=== PATIENT | female | born 1980 | race African-American/Black ===

== ENCOUNTER 2022-10-24 17:17 | Emergency (ER) | payer OTHER ==
[~2022-10-24] VITALS: Ht 167.6 cm; Wt 90.7 kg
--- NOTE | 2022-10-24 17:45 | NUR ---
urine sample collected and sent to lab
--- NOTE | 2022-10-24 17:53 | NUR ---
iv established. 22g LAC
--- NOTE | 2022-10-24 17:53 | NUR ---
blood drawn and sent to lab
[2022-10-24] MEDS ORDERED: ONDANSETRON HCL/PF 4 MG/2 ML VIAL ONE (17:57)
[2022-10-24] MEDS ORDERED: MORPHINE SULFATE INJ 4 MG/ML DISP.SYRIN ONE (17:57)
[2022-10-24] MEDS ORDERED: IV NS 0.9% 1,000 ML BAG IV ONE (18:00)
[2022-10-24] MEDS ORDERED: ONDANSETRON HCL/PF 4 MG/2 ML VIAL IVP ONE (18:00)
[2022-10-24] MEDS ORDERED: MORPHINE SULFATE INJ 2 MG/ML DISP.SYRIN IV ONE (18:00)
[2022-10-24 18:04] LABS: BASOPHILS % (AUTO) 0.3 % (0.0-2.0); EOSINOPHILS % (AUTO) 1.3 % (0.0-6.0); HEMATOCRIT 38 % (33-45); LYMPHOCYTES # (AUTO) 2.1 K/uL (0.8-4.8); MEAN CORPUSCULAR HGB CONC 32 g/dl (31.0-36.0); MEAN CORPUSCULAR VOLUME 86 fL (82-100); MONOCYTES # (AUTO) 0.6 K/uL (0.1-1.30); NEUTROPHILS # (AUTO) 4.6 K/uL (1.8-8.9); NEUTROPHILS % (AUTO) 62.4 % (43.0-81.0); PLATELET COUNT (AUTO) 289 K/uL (150-450); RED BLOOD CELL COUNT(AUTO) 4.37 MIL/uL (4.0-5.2); WHITE BLOOD COUNT (AUTO) 7.4 K/uL (4.3-11.0)
[2022-10-24 18:12] LABS: CALCIUM, SERUM 8.9 mg/dL (8.5-10.1); CREATININE 0.9 mg/dL (0.6-1.3); POTASSIUM 3.2 mmol/L (3.5-5.1)
[2022-10-24 18:15] LABS: BILIRUBIN,URINE NEGATIVE (NEGATIVE); COLOR,URINE YELLOW (YELLOW); LEUKOCYTE ESTERASE ,URINE NEGATIVE (NEGATIVE); NITRITE, URINE NEGATIVE (NEGATIVE); PH,URINE 6.5 (5.0-8.0); PROTEIN,URINE NEGATIVE (NEGATIVE); UGLUCOSE NEGATIVE (NEGATIVE)
[2022-10-24 18:18] LABS: ALBUMIN 3.7 g/dL (3.4-5.0); BILIRUBIN,DIRECT 0.1 mg/dL (0.0-0.2); BILIRUBIN,TOTAL 0.3 mg/dL (0.2-1.0); TOTAL PROTEIN, SERUM 7.9 g/dL (6.4-8.2)
--- NOTE | 2022-10-24 18:25 | NUR ---
patient taken to ct via [facility]
[2022-10-24 18:27] LABS: BACTERIA,URINE 1+ /HPF (None Seen); RBC,URINE 0-2 /HPF (0-2); SQUAMOUS EPITHELIAL CELL,UR Moderate /HPF (None Seen); WBC,URINE 0-2 /HPF (0-3)
[2022-10-24] MEDS ORDERED: PROCHLORPERAZINE EDISYLATE 10 MG/2 ML VIAL IVP ONE (19:00)
[2022-10-24] MEDS ORDERED: diphenhydrAMINE HCL 50 MG/ML VIAL IV ONE (19:00)
[2022-10-24] MEDS ORDERED: PROCHLORPERAZINE EDISYLATE 10 MG/2 ML VIAL ONE (19:02)
[2022-10-24] MEDS ORDERED: diphenhydrAMINE HCL 50 MG/ML VIAL ONE (19:02)
[2022-10-24] MEDS ORDERED: POTASSIUM CHLORIDE 20 MEQ TAB.PRT.SR PO ONE ×2 (19:12→19:30)
[2022-10-24] MEDS ORDERED: NAPR-1164 PO (20:19)
[2022-10-24] MEDS ORDERED: ONDA4TAB5 PO (20:19)
[2022-10-24 20:40] VITALS: BP 130/85
--- NOTE | 2022-10-24 20:40 | NUR ---
Patient discharged to home in stable condition. Ambulatory. Written and verbal after care instructions given. Patient verbalizes understanding of instruction.
== END 2022-10-24 20:41 | disposition home or self-care (01) ==
LOC: ER 17:20
DX: G43.909 Migraine, unspecified, not intractable, without status migrainosus (principal); E87.6 Hypokalemia; R11.2 Nausea with vomiting, unspecified; Z91.013 Allergy to seafood; Z79.899 Other long term (current) drug therapy; Z88.1 Allergy status to other antibiotic agents
CPT/HCPCS: 99285; 96374; 96375; 70450; 96361; 85025; 80048; 80076; 84703; 81001; 36415; J0780; J1200; J2270; J2405; J7030

== ENCOUNTER 2024-04-24 10:14 | Emergency (ER) | payer OTHER ==
[~2024-04-24] VITALS: Ht 165.1 cm; Wt 95.3 kg
[~2024-04-24 10:14] MED LIST: NAPR-1164 PO; ONDA4TAB5 PO
[2024-04-24 10:28] VITALS: BP 121/80; TEMP 98.2
[2024-04-24] MEDS ORDERED: KETOROLAC TROMETHAMINE 15 MG/ML VIAL ONE (11:33)
[2024-04-24] MEDS ORDERED: LIDOCAINE 5% (PATCH) 1 EA PATCH TP ONE (11:33)
[2024-04-24] MEDS: KETOROLAC TROMETHAMINE 15 MG/ML VIAL IM ONE (11:41)
[2024-04-24] MEDS ORDERED: LIDO30AD10 TP (11:42)
[2024-04-24] MEDS ORDERED: METH4TAB3 PO (11:42)
[2024-04-24] MEDS: LIDOCAINE 5% (PATCH) 1 EA PATCH TP STA (11:42)
[2024-04-24] MEDS ORDERED: IBUP-1955 PO (11:42)
[2024-04-24] MEDS ORDERED: CYCL5TAB PO (11:42)
[2024-04-24 11:56] VITALS: O2SAT 100
== END 2024-04-24 11:56 | disposition home or self-care (01) ==
LOC: ER 10:25
DX: G89.29 Other chronic pain (principal); M54.59 Other low back pain; G43.909 Migraine, unspecified, not intractable, without status migrainosus; Z88.0 Allergy status to penicillin; V89.2XXA Person injured in unspecified motor-vehicle accident, traffic, initial encounter; Y93.89 Activity, other specified; Y92.89 Other specified places as the place of occurrence of the external cause; Y99.8 Other external cause status
CPT/HCPCS: 99283; 96372; J1885